=== PATIENT | male | born 1955 | race Caucasian/White ===

== ENCOUNTER → 2020-10-27 | Outpatient (CLI) | payer MEDICARE, OTHER ==
[~2020-10-27] MED LIST: ANORO ELLIPTA1 EACH INH; ASPIR-LOW81 MG PO; ATORVASTATIN CA40 MG PO; BETAPACE80 MG PO; ELIQUIS5 MG PO; GABAPENTIN800 MG PO; IMDUR ER TAB 3030 MG PO; ISOSORBIDE MONO30 MG PO; KEPPRA750 MG PO; LIPITOR40 MG PO; LISINOPRIL10 MG PO; NITROSTAT0.4 MG SL; VENTOLIN HFA 66.7 GM INH; VITAMIN D250000 UNIT PO; XARELTO20 MG PO; ZETIA 10 MG TAB10 MG PO; ZETIA10 MG PO
== END ==
LOC: US 07:59 → ECHO 09:00 → NM 10:00
DX: I20.9 Angina pectoris, unspecified (principal); I48.91 Unspecified atrial fibrillation; R55 Syncope and collapse; I08.1 Rheumatic disorders of both mitral and tricuspid valves; I27.20 Pulmonary hypertension, unspecified
CPT/HCPCS: ECHO; 78452; 93017; 93270; 93306; 93880; A9502; J2785

== ENCOUNTER → 2020-12-06 | Outpatient (CLI) | payer MEDICARE, OTHER ==
[2020-12-06 10:44] LABS: HEMOGLOBIN 15.7 gm/dl (14.0-17.5); RED BLOOD COUNT 4.85 M/UL (4.20-5.50)
== END ==
LOC: LAB 10:02
PROVIDERS: Internal Medicine Cardiovascular Disease
DX: R94.39 Abnormal result of other cardiovascular function study (principal); I25.119 Atherosclerotic heart disease of native coronary artery with unspecified angina pectoris; J98.11 Atelectasis
CPT/HCPCS: 36415; 71046; 80048; 85025

== ENCOUNTER → 2020-12-08 | Outpatient (CLI) | payer MEDICARE, OTHER | LOC: CATH 07:12 | DX: I25.118 Atherosclerotic heart disease of native coronary artery with other forms of angina pectoris (principal); I47.2 Ventricular tachycardia; I48.0 Paroxysmal atrial fibrillation; I12.9 Hypertensive chronic kidney disease with stage 1 through stage 4 chronic kidney disease, or unspecified chronic kidney disease; N18.9 Chronic kidney disease, unspecified; J44.9 Chronic obstructive pulmonary disease, unspecified; E78.5 Hyperlipidemia, unspecified; I25.2 Old myocardial infarction; G43.709 Chronic migraine without aura, not intractable, without status migrainosus; F17.210 Nicotine dependence, cigarettes, uncomplicated; Z79.01 Long term (current) use of anticoagulants; Z79.82 Long term (current) use of aspirin; Z79.899 Other long term (current) drug therapy | CPT/HCPCS: 93798; 99152; C1769; C1894; J1644; J2250; J3010; J7030; Q9965 ==

== ENCOUNTER → 2021-06-06 | Outpatient (CLI) | payer MEDICARE, OTHER ==
[~2021-06-06] MED LIST changes: +DIGOXIN125 MCG PO; +ISOSORBIDE MONO60 MG PO; +PACERONE200 MG PO
[2021-06-06 12:12] LABS: HEMOGLOBIN 14.8 gm/dl (14.0-17.5); RED BLOOD COUNT 4.67 M/UL (4.20-5.50); WHITE BLOOD COUNT 8.2 K/UL (4.5-11.0)
== END ==
LOC: LAB 10:42
PROVIDERS: Physician Assistant
DX: I48.91 Unspecified atrial fibrillation (principal); I25.10 Atherosclerotic heart disease of native coronary artery without angina pectoris; I10 Essential (primary) hypertension; E78.5 Hyperlipidemia, unspecified; R60.9 Edema, unspecified; R42 Dizziness and giddiness; I47.2 Ventricular tachycardia; R00.2 Palpitations; R55 Syncope and collapse
CPT/HCPCS: 36415; 80053; 84439; 84443; 84481; 85025

== ENCOUNTER → 2021-06-08 | Outpatient (CLI) | payer MEDICARE, OTHER | LOC: CATH 07:03 | DX: I48.91 Unspecified atrial fibrillation (principal); I25.10 Atherosclerotic heart disease of native coronary artery without angina pectoris; R06.02 Shortness of breath; I10 Essential (primary) hypertension; I47.2 Ventricular tachycardia | CPT/HCPCS: 93005 ==

== ENCOUNTER → 2021-07-15 | Outpatient (CLI) | payer MEDICARE, OTHER ==
[2021-07-15 12:04] LABS: HEMOGLOBIN 13.9 gm/dl (14.0-17.5); RED BLOOD COUNT 4.63 M/UL (4.20-5.50)
== END ==
LOC: LAB 11:10
PROVIDERS: Internal Medicine Cardiovascular Disease
DX: I48.92 Unspecified atrial flutter (principal); I48.91 Unspecified atrial fibrillation; I10 Essential (primary) hypertension
CPT/HCPCS: 36415; 71046; 80048; 85025

== ENCOUNTER 2021-07-19 09:34 | Outpatient (CLI) | payer MEDICARE, OTHER ==
[~2021-07-19] VITALS: Ht 177.8 cm; Wt 101.2 kg
[~2021-07-19 09:34] MED LIST changes: -ISOSORBIDE MONO60 MG PO; -LISINOPRIL10 MG PO; +LISINOPRIL20 MG PO
[2021-07-19] MEDS ORDERED: DAILY VALUE1 EACH PO (17:03)
[2021-07-19] MEDS ORDERED: PULMICORT FLE180 MCG INH (17:04)
[2021-07-19] MEDS ORDERED: GABAPENTIN800 MG PO (17:04)
[2021-07-19] MEDS ORDERED: ANORO ELLIPTA1 EACH INH (17:05)
== END 2021-07-20 10:19 | disposition home or self-care (01) ==
LOC: CATH 09:34 → PROG CARE 16:05 → CATH 07-20 10:19
DX: I48.92 Unspecified atrial flutter (principal); I48.0 Paroxysmal atrial fibrillation; I25.10 Atherosclerotic heart disease of native coronary artery without angina pectoris; I12.9 Hypertensive chronic kidney disease with stage 1 through stage 4 chronic kidney disease, or unspecified chronic kidney disease; N18.9 Chronic kidney disease, unspecified; I25.2 Old myocardial infarction; J44.9 Chronic obstructive pulmonary disease, unspecified; E78.5 Hyperlipidemia, unspecified; F17.200 Nicotine dependence, unspecified, uncomplicated; F10.10 Alcohol abuse, uncomplicated; Z79.01 Long term (current) use of anticoagulants; Z79.82 Long term (current) use of aspirin; Z79.899 Other long term (current) drug therapy; Z82.49 Family history of ischemic heart disease and other diseases of the circulatory system
CPT/HCPCS: 93005; 93609; 93620; 94664; 94760; 99152; 99153; C1730; C1733; C1766; J1644; J2250; J3010; J7040

== ENCOUNTER → 2021-08-17 | Outpatient (CLI) | payer MEDICARE, OTHER ==
[~2021-08-17] MED LIST changes: +DAILY VALUE1 EACH PO; +PULMICORT FLE180 MCG INH
== END ==
LOC: HEART 5 08:32
DX: R06.02 Shortness of breath (principal); Z79.899 Other long term (current) drug therapy
CPT/HCPCS: 93306; 94060; 94729

== ENCOUNTER → 2021-09-21 | Outpatient (CLI) | payer MEDICARE, OTHER ==
[2021-09-21 11:06] LABS: HEMOGLOBIN 12.9 gm/dl (14.0-17.5); RED BLOOD COUNT 4.25 M/UL (4.20-5.50)
== END ==
LOC: LAB 10:45
PROVIDERS: Physician Assistant
DX: I10 Essential (primary) hypertension (principal); I48.91 Unspecified atrial fibrillation; I25.10 Atherosclerotic heart disease of native coronary artery without angina pectoris; R42 Dizziness and giddiness; R60.9 Edema, unspecified; R78.5 Finding of other psychotropic drug in blood; I47.2 Ventricular tachycardia; R00.2 Palpitations; R06.02 Shortness of breath
CPT/HCPCS: 36415; 80048; 85025

== ENCOUNTER 2021-11-11 12:52 | Inpatient (IN) | payer MEDICARE, OTHER ==
[~2021-11-11] VITALS: Ht 177.8 cm; Wt 96.6 kg
[~2021-11-11 12:52] MED LIST changes: +PROAIR HFA8.5 GM INH; -VENTOLIN HFA 66.7 GM INH
[2021-11-11] MEDS ORDERED: TRELEGY ELLIPT1 EACH INH (13:56)
[2021-11-11] MEDS ORDERED: SPIRONOLACTONE25 MG PO (13:59)
[2021-11-11] MEDS ORDERED: CYCLOBENZAPRINE10 MG PO (14:02)
[2021-11-11] MEDS ORDERED: VITAMIN D21250 MCG PO (14:04)
[2021-11-11 15:47] LABS: HEMOGLOBIN 11.6 gm/dl (14.0-17.5); RED BLOOD COUNT 3.84 M/UL (4.20-5.50); WHITE BLOOD COUNT 6.8 K/UL (4.5-11.0)
[2021-11-11 16:14] LABS: BUN/CREATININE RATIO 11 (0-10)
[2021-11-11 18:39] LABS: TOTAL PROTEIN, BODY FLUID 2.2 gm/dL
[2021-11-12 04:32] LABS: HEMOGLOBIN 11.1 gm/dl (14.0-17.5); RED BLOOD COUNT 3.65 M/UL (4.20-5.50)
[2021-11-12] MEDS ORDERED: ZOSYN IV (16:02)
[2021-11-12] MEDS ORDERED: VANCOMYCIN IV (16:04)
[2021-11-12] MEDS ORDERED: LOVENOX100 MG/1 M SQ (16:05)
[2021-11-12] MEDS ORDERED: LOPRESSOR 25 MG25 MG PO (16:30)
== END 2021-11-12 17:07 | disposition short-term general hospital (02) | DRG 186 ==
LOC: CDU 12:58 → PROG CARE 13:47
PROVIDERS: ADMIT Internal Medicine
PROC: 0W9B30Z Drainage of Left Pleural Cavity with Drainage Device, Percutaneous Approach (ICD-10-PCS; principal; 2021-11-11)
DX: J91.8 Pleural effusion in other conditions classified elsewhere (principal); J18.9 Pneumonia, unspecified organism; I48.92 Unspecified atrial flutter; J44.0 Chronic obstructive pulmonary disease with (acute) lower respiratory infection; I44.30 Unspecified atrioventricular block; I48.0 Paroxysmal atrial fibrillation; I12.9 Hypertensive chronic kidney disease with stage 1 through stage 4 chronic kidney disease, or unspecified chronic kidney disease; E78.5 Hyperlipidemia, unspecified; E55.9 Vitamin D deficiency, unspecified; F17.210 Nicotine dependence, cigarettes, uncomplicated; I25.10 Atherosclerotic heart disease of native coronary artery without angina pectoris; E66.9 Obesity, unspecified; N18.30 Chronic kidney disease, stage 3 unspecified; G40.909 Epilepsy, unspecified, not intractable, without status epilepticus; Z79.82 Long term (current) use of aspirin; Z79.899 Other long term (current) drug therapy; Z82.49 Family history of ischemic heart disease and other diseases of the circulatory system; Z83.3 Family history of diabetes mellitus
CPT/HCPCS: 36415; 71045; 80053; 82550; 82553; 82945; 83605; 84157; 84439; 84443; 84484; 85027; 85610; 87040; 87070; 87205; 89051; 93005; 93308; 94640; 94664; 94760; J1650; J2270; J2543; J3370; J7070

== ENCOUNTER → 2021-12-14 | Outpatient (CLI) | payer MEDICARE, OTHER ==
[~2021-12-14] MED LIST changes: +CYCLOBENZAPRINE10 MG PO; +LOPRESSOR 25 MG25 MG PO; +LOVENOX100 MG/1 M SQ; +SPIRONOLACTONE25 MG PO; +TRELEGY ELLIPT1 EACH INH; +VANCOMYCIN IV; +VITAMIN D21250 MCG PO; +ZOSYN IV
[2021-12-14 16:54] LABS: HEMOGLOBIN 8.9 gm/dl (14.0-17.5); RED BLOOD COUNT 2.98 M/UL (4.20-5.50); WHITE BLOOD COUNT 5.5 K/UL (4.5-11.0)
== END ==
LOC: RAD 16:28
PROVIDERS: Internal Medicine Pulmonary Disease
DX: J44.9 Chronic obstructive pulmonary disease, unspecified (principal); Z98.890 Other specified postprocedural states; J94.8 Other specified pleural conditions; R91.8 Other nonspecific abnormal finding of lung field
CPT/HCPCS: 36415; 71046; 80048; 85025

== ENCOUNTER → 2021-12-26 | Outpatient (CLI) | payer MEDICARE, OTHER | LOC: RAD 07:22 | DX: Z00.00 Encounter for general adult medical examination without abnormal findings (principal) | CPT/HCPCS: 71046 ==

== ENCOUNTER → 2022-03-01 | Outpatient (CLI) | payer MEDICARE, OTHER | LOC: SLEEP 13:25 | DX: R06.83 Snoring (principal); G47.33 Obstructive sleep apnea (adult) (pediatric) | CPT/HCPCS: 95810 ==

== ENCOUNTER → 2022-03-31 | Outpatient (CLI) | payer MEDICARE, OTHER ==
[2022-03-31 08:49] LABS: HEMOGLOBIN 9.3 gm/dl (14.0-17.5); RED BLOOD COUNT 3.38 M/UL (4.20-5.50); WHITE BLOOD COUNT 5.6 K/UL (4.5-11.0)
[2022-03-31 09:03] LABS: BUN/CREATININE RATIO 14 (0-10)
== END ==
LOC: LAB 07:42
PROVIDERS: Internal Medicine Cardiovascular Disease
DX: I20.9 Angina pectoris, unspecified (principal); I25.10 Atherosclerotic heart disease of native coronary artery without angina pectoris; I46.9 Cardiac arrest, cause unspecified
CPT/HCPCS: 36415; 71046; 80048; 80061; 80076; 84439; 84443; 84481; 85025